=== PATIENT | female | born 2000 | race Asian ===

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

== ENCOUNTER 2022-03-14 09:53 | Outpatient (CLI) | payer BC, OTHER | END 2022-03-14 23:59 | disposition home or self-care (01) | LOC: LAB 09:53 | PROVIDERS: ATTEND Family Medicine | DX: Z11.59 Encounter for screening for other viral diseases (principal) | CPT/HCPCS: 36415; 86762 ==

== ENCOUNTER 2022-05-04 08:25 | Outpatient (CLI) | payer BC, OTHER ==
[2022-05-05 10:06] LABS: A/G RATIO 0.9 (0.7-1.7); ALBUMIN 3.4 g/dL (2.9-4.4); ALPHA-1-GLOBULIN 0.3 g/dL (0.0-0.4); BETA GLOBULIN 1.1 g/dL (0.7-1.3); GAMMA GLOBULIN 1.5 g/dL (0.4-1.8); GLOBULIN, TOTAL 3.8 g/dL (2.2-3.9); M-SPIKE Not Observed g/dL (Not Observed)
== END 2022-05-04 23:59 | disposition home or self-care (01) ==
LOC: LAB 08:25
PROVIDERS: ATTEND Internal Medicine Endocrinology, Diabetes & Metabolism
DX: D35.2 Benign neoplasm of pituitary gland (principal); N92.6 Irregular menstruation, unspecified; E22.1 Hyperprolactinemia; R73.03 Prediabetes
CPT/HCPCS: 36415; 84155; 84165

== ENCOUNTER 2023-02-08 08:22 | Outpatient (CLI) | payer BC, OTHER ==
[2023-02-09 08:06] LABS: *TESTOSTERONE, SERUM 56 ng/dL (13-71); PROGESTERONE 0.1 ng/mL (.)
[2023-02-14 08:06] LABS: TEST, %FREE+WK BOUND 53.1 % (3.0-18.0); TEST, FREE+WK BOUND 29.7 ng/dL (0.0-9.5)
== END 2023-02-08 23:59 | disposition home or self-care (01) ==
LOC: LAB 08:22
PROVIDERS: ATTEND Internal Medicine Endocrinology, Diabetes & Metabolism
DX: D35.2 Benign neoplasm of pituitary gland (principal); E22.1 Hyperprolactinemia; L68.0 Hirsutism; L70.9 Acne, unspecified; R73.09 Other abnormal glucose
CPT/HCPCS: 36415; 70030-TC; 84402; 84403

== ENCOUNTER 2023-08-29 11:16 | Outpatient (CLI) | payer BC, OTHER ==
[2023-08-29 11:59] LABS: BASOPHILS # (AUTO) 0.1 K/UL (0.0-0.2); EOSINOPHILS # (AUTO) 0.1 K/uL (0.0-0.7); EOSINOPHILS % (AUTO) 1.7 % (0.0-7.0); HEMATOCRIT 40.8 % (31.2-41.9); HEMOGLOBIN 13.8 g/dL (10.9-14.3); LYMPHOCYTES # (AUTO) 2.7 K/uL (0.8-4.8); MEAN CORPUSCULAR HGB CONC 34 g/dL (32.3-35.6); MEAN CORPUSCULAR VOLUME 85.5 fL (75.5-95.3); MONOCYTES # (AUTO) 0.5 K/uL (0.1-1.30); NEUTROPHILS # (AUTO) 4.5 K/uL (1.8-8.9); NEUTROPHILS % (AUTO) 57.3 % (38.5-71.5); PLATELET COUNT (AUTO) 407 K/uL (179-408); RED BLOOD CELL COUNT(AUTO) 4.77 MIL/uL (3.63-4.92); RED CELL DISTRIBUTION WIDTH 13.4 % (12.3-17.7); WHITE BLOOD COUNT (AUTO) 7.9 K/uL (3.8-11.8)
[2023-08-29 12:23] LABS: ALANINE AMINOTRANSFERASE 28 U/L (14-59); ALBUMIN 3.5 g/dL (3.4-5.0); ALKALINE PHOSPHATASE 73 U/L (50-136); ASPARTATE AMINOTRANSFERASE 18 U/L (15-37); BILIRUBIN,DIRECT 0.1 mg/dL (0.0-0.2); BILIRUBIN,TOTAL 0.2 mg/dL (0.2-1.0); CHOLESTEROL 231 mg/dL (<200); HDL CHOLESTEROL 46 mg/dL (40-60); PREGNANCY TEST SERUM QUAN < 1 miul/L (0-6); TRIGLYCERIDES 230 MG/DL (30-150)
[2023-08-29 12:26] LABS: DIFFERENTIAL COMMENT 1
== END 2023-08-29 23:59 | disposition home or self-care (01) ==
LOC: LAB 11:16
PROVIDERS: ATTEND Nurse Practitioner Family
DX: Z00.00 Encounter for general adult medical examination without abnormal findings (principal); L70.0 Acne vulgaris; K13.0 Diseases of lips; E78.00 Pure hypercholesterolemia, unspecified; L81.8 Other specified disorders of pigmentation; L98.8 Other specified disorders of the skin and subcutaneous tissue; L90.5 Scar conditions and fibrosis of skin; L85.3 Xerosis cutis; L81.0 Postinflammatory hyperpigmentation; Z79.899 Other long term (current) drug therapy
CPT/HCPCS: 36415; 85025

== ENCOUNTER 2025-03-31 05:36 | Emergency (ER) | payer BC ==
[~2025-03-31] VITALS: Ht 152.4 cm; Wt 70.3 kg
[2025-03-31 05:49] VITALS: BP 117/84
[2025-03-31] MEDS ORDERED: ONDANSETRON 4 MG/2 ML VIAL ONE (06:06)
[2025-03-31 06:17] LABS: PLATELET COUNT (AUTO) 416 K/uL (179-408); RED BLOOD CELL COUNT(AUTO) 4.85 MIL/uL (3.63-4.92); RED CELL DISTRIBUTION WIDTH 13.3 % (12.3-17.7); WHITE BLOOD COUNT (AUTO) 10.3 K/uL (3.8-11.8)
[2025-03-31] MEDS: ONDANSETRON 4 MG/2 ML VIAL IV ONE (06:18)
[2025-03-31] MEDS: IV NS 1000 ML 1,000 ML IV ONE (06:18)
[2025-03-31 06:24] LABS: *BILIRUBIN,URIN NEGATIVE (NEGATIVE); *BLOOD, URINE 3+ (NEGATIVE); *CLARITY,URINE TURBID (CLEAR); *COLOR,URINE AMBER (YELLOW); *KETONES,URINE NEGATIVE (NEGATIVE); *PROTEIN,URINE 1+ (NEGATIVE); *UROBILINOGEN,URINE 0.2 E.U./dl (NORMAL); LEUKOCYTE ESTERASE ,URINE NEGATIVE (NEGATIVE); NITRITE, URINE NEGATIVE (NEGATIVE); UGLUCOSE NEGATIVE (NEGATIVE)
[2025-03-31 06:26] LABS: CREATININE 0.8 mg/dL (0.6-1.3); SODIUM SERUM 140.0 mmol/L (136-145); UREA NITROGEN, BLOOD 14.0 mg/dL (7-18)
[2025-03-31 06:29] LABS: *URINE HCG, QUAL NEGATIVE (NEGATIVE)
[2025-03-31 06:32] LABS: ASPARTATE AMINOTRANSFERASE 18.0 U/L (15-37); TOTAL PROTEIN, SERUM 8.2 g/dL (6.4-8.2)
[2025-03-31 07:11] LABS: SQUAMOUS EPITHELIAL CELL,UR MODERATE /HPF (NONE SEEN)
[2025-03-31 07:12] LABS: URINE AMORPHOUS URATE MODERATE /HPF
[2025-03-31 08:20] VITALS: BP 122/70; O2SAT 98
== END 2025-03-31 08:21 | disposition home or self-care (01) ==
LOC: ER 05:44
DX: N93.9 Abnormal uterine and vaginal bleeding, unspecified (principal); R11.0 Nausea; R42 Dizziness and giddiness; R51.9 Headache, unspecified; E28.2 Polycystic ovarian syndrome; Z86.018 Personal history of other benign neoplasm; Z88.7 Allergy status to serum and vaccine
CPT/HCPCS: 99285; 76705; 96374; 96361; 80053; 81001; 84703; 83690; 84443; 85025; 85610; 87086; 36415; 76856; J2405; J7040; A4606; A4663